=== PATIENT | male | born 1985 | race Caucasian/White ===

== ENCOUNTER 2019-12-28 01:45 | Emergency (ER) | payer SELFPAY ==
[2019-12-28 02:58] LABS: Urine Blood NEGATIVE (NEG); Urine Glucose NEGATIVE (NEG); Urine Protein NEGATIVE (NEG); Urine Specific Gravity >1.030 (1.005-1.030); Urine pH 5.5 (5.0-7.0)
[2019-12-28] MEDS ORDERED: NA CHLORIDE 0.9% 1,000 ML ONE (03:12)
[2019-12-28] MEDS ORDERED: MORPHINE 4 MG/ML SYR ONE (03:12)
[2019-12-28] MEDS ORDERED: ONDANSETRON 4 MG/2 ML VIAL ONE (03:13)
[2019-12-28 04:14] LABS: Absolute Lymphocytes (CBC) 1.9 K/uL (0.7-4.9); Basophils % 0.2 % (0-1.3); Hematocrit 41.4 % (39.6-49.0); MPV 8.4 fL (7.6-11.3); RBC Red Blood Cell Count 4.84 M/uL (4.33-5.43)
[2019-12-28 04:20] LABS: ALT/SGPT 48 U/L (12-78); AST/SGOT 27 U/L (15-37); Albumin 3.7 g/dL (3.4-5.0); Alkaline Phosphatase 84 U/L (45-117); BUN Blood Urea Nitrogen 13 mg/dL (7-18); Bicarbonate 27 mmol/L (21-32); Bilirubin Direct 0.1 mg/dL (0-0.2); Bilirubin Total 0.4 mg/dL (0.2-1.0); Glucose Level 97 mg/dL (74-106); Lipase 138 U/L (73-393); Potassium 3.8 mmol/L (3.5-5.1); Protein, Total 7.9 g/dL (6.4-8.2); Sodium Level 136 mmol/L (136-145)
--- NOTE | 2019-12-28 05:45 | EDPHYS ---
Physician Documentation [facility] Name: Roman Rico Age: 34 yrs Sex: Male : 1985 Arrival Date: 12/28/2019 Time: 01:48 Bed 13 Private MD: VICKY Physician Matt Parmar HPI: 12/27 02:58 This 34 yrs old Male presents to ER via Ambulatory with complaints of vania Possible Kidney Stone. 02:58 The patient presents with abdominal pain in the upper abdomen, in the right upper vania quadrant, abdominal distention in the upper abdomen, in the right upper quadrant. Onset: The symptoms/episode began/occurred 1 day(s) ago. The symptoms do not radiate. Associated signs and symptoms: Pertinent positives: fever, nausea, shortness of breath. The symptoms are described as constant, crampy. Modifying factors: The symptoms are alleviated by remaining still, the symptoms are aggravated by movement, touching the area, walking. Severity of pain: At its worst the pain was moderate in the emergency department the pain is unchanged. The patient has not experienced similar symptoms in the past. Historical: - Allergies: 02:17 No Known Allergies; lp1 - Home Meds: 02:17 None [Active]; lp1 - PMHx: 02:17 None; lp1 - PSHx: 02:17 None; lp1 - Immunization history:: Adult Immunizations up to date. - Social history:: Smoking status: Patient denies any tobacco usage or history of. - Family history:: not pertinent. ROS: 02:58 Constitutional: Negative for fever, chills, and weight loss, Eyes: Negative for injury, vania pain, redness, and discharge, ENT: Negative for injury, pain, and discharge, Neck: Negative for injury, pain, and swelling, Cardiovascular: Negative for chest pain, palpitations, and edema, Respiratory: Negative for shortness of breath, cough, wheezing, and pleuritic chest pain, Back: Negative for injury and pain, : Negative for injury, bleeding, discharge, and swelling, MS/Extremity: Negative for injury and deformity, Skin: Negative for injury, rash, and discoloration, Neuro: Negative for headache, weakness, numbness, tingling, and seizure, Psych: Negative for depression, anxiety, suicide ideation, homicidal ideation, and hallucinations, Allergy/Immunology: Negative for hives, rash, and allergies, Endocrine: Negative for neck swelling, polydipsia, polyuria, polyphagia, and marked weight changes, Hematologic/Lymphatic: Negative for swollen nodes, abnormal bleeding, and unusual bruising. 02:58 Abdomen/GI: Positive for abdominal pain, abdominal distension, of the anterior aspect of right lateral abdomen, posterior aspect of right lateral abdomen and right upper quadrant. Exam: 02:58 Constitutional: This is a well developed, well nourished patient who is awake, alert, vania and in no acute distress. Head/Face: Normocephalic, atraumatic. Eyes: Pupils equal round and reactive to light, extra-ocular motions intact. Lids and lashes normal. Conjunctiva and sclera are non-icteric and not injected. Cornea within normal limits. Periorbital areas with no swelling, redness, or edema. ENT: Nares patent. No nasal discharge, no septal abnormalities noted. Tympanic membranes are normal and external auditory canals are clear. Oropharynx with no redness, swelling, or masses, exudates, or evidence of obstruction, uvula midline. Mucous membranes moist. Neck: Trachea midline, no thyromegaly or masses palpated, and no cervical lymphadenopathy. Supple, full range of motion without nuchal rigidity, or vertebral point tenderness. No Meningismus. Chest/axilla: Normal chest wall appearance and motion. Nontender with no deformity. No lesions are appreciated. Cardiovascular: Regular rate and rhythm with a normal S1 and S2. No gallops, murmurs, or rubs. Normal PMI, no JVD. No pulse deficits. Respiratory: Lungs have equal breath sounds bilaterally, clear to auscultation and percussion. No rales, rhonchi or wheezes noted. No increased work of breathing, no retractions or nasal flaring. Back: No spinal tenderness. No costovertebral tenderness. Full range of motion. Male : Normal genitalia with no discharge or lesions. Skin: Warm, dry with normal turgor. Normal color with no rashes, no lesions, and no evidence of cellulitis. MS/ Extremity: Pulses equal, no cyanosis. Neurovascular intact. Full, normal range of motion. Neuro: Awake and alert, GCS 15, oriented to person, place, time, and situation. Cranial nerves II-XII grossly intact. Motor strength 5/5 in all extremities. Sensory grossly intact. Cerebellar exam normal. Normal gait. Psych: Awake, alert, with orientation to person, place and time. Behavior, mood, and affect are within normal limits. 02:58 Abdomen/GI: Inspection: distension, Bowel sounds: normal, Palpation: mild abdominal tenderness, moderate abdominal tenderness, in the anterior aspect of right lateral abdomen, posterior aspect of right lateral abdomen and right upper quadrant, Liver: no appreciated palpable abnormalities, Hernia: not appreciated. 05:46 Musculoskeletal/extremity: DVT Exam: No signs of deep vein thrombosis. no pain, no vania swelling, no tenderness, negative Homans' sign noted on exam, no appreciated bluish discoloration, no erythema, no increased warmth. Vital Signs: 02:15 BP 132 / 79; Pulse 90; Resp 18; Temp 99.6(O); Pulse Ox 100% on R/A; Weight 81.65 kg lp1 (R); Height 6 ft. 0 in. (182.88 cm); Pain 3/10; 03:33 BP 114 / 71; Pulse 84; Resp 19; Temp 99.6; Pulse Ox 96% ; Pain 6/10; fu 04:15 BP 104 / 73; Pulse 77; Resp 19; Pain 0/10; fu 07:15 BP 120 / 76; Pulse 89; Resp 18; Temp 98.9; Pulse Ox 99% on R/A; ph 02:15 Body Mass Index 24.41 (81.65 kg, 182.88 cm) lp1 MDM: 02:24 Patient medically screened. vania 03:01 Data reviewed: vital signs, nurses notes, lab test result(s), radiologic studies, CT vania scan, plain films. 03:01 Differential diagnosis: appendicitis, bowel obstruction, cholecystitis, Cholelithiasis, vania gastritis, non-specific abd pain, pancreatitis, Peptic Ulcer Disease, Ureterolithiasis, urinary tract infection. Data interpreted: threat monitoring analyst: not applicable for this patient encounter. rate is 90 beats/min, rhythm is normal sinus rhythm, Pulse oximetry: on room air is 100 %. Test interpretation: by ED physician or midlevel provider: plain radiologic studies. Counseling: I had a detailed discussion with the patient and/or guardian regarding: the historical points, exam findings, and any diagnostic results supporting the discharge/admit diagnosis, lab results, radiology results. Medication response: Zofran markedly relieved the patient's nausea. 05:42 ED course: ct right lower lobe patchy process, milld left hydro, possible passed stone, [facility] mild enteritis. 12/27 02:45 Order name: Urine Dipstick--Ancillary (enter results); Complete Time: 03:48 mt 12/27 02:58 Order name: Basic Metabolic Panel; Complete Time: 04:25 [facility] 12/27 02:58 Order name: CBC with Diff; Complete Time: 05:40 [facility] 12/27 02:58 Order name: Hepatic Function; Complete Time: 04:25 [facility] 12/27 02:58 Order name: Lipase; Complete Time: 04:25 [facility] 12/27 05:06 Order name: CREATININE WHOLE BLOOD; Complete Time: 05:40 EDMS 12/27 02:18 Order name: Urine Dipstick-Ancillary (obtain specimen); Complete Time: 02:49 lp1 12/27 02:58 Order name: CT Abd/Pelvis - IV Contrast Only [facility] 12/27 02:58 Order name: Chest Pa And Lat (2 Views) XRAY [facility] 12/27 02:58 Order name: IV Saline Lock; Complete Time: 03:36 [facility] 12/27 02:58 Order name: Labs collected and sent; Complete Time: 03:36 [facility] Administered Medications: 03:36 Drug: NS 0.9% 1000 ml Route: IV; Rate: 1 bolus; Site: right antecubital; fu 04:55 Follow up: Response: No adverse reaction fu 03:36 Drug: morphine 4 mg Route: IVP; Site: right antecubital; fu 04:36 Follow up: Response: Pain is decreased fu 03:36 Drug: Zofran (Ondansetron) 4 mg Route: IVP; Site: right antecubital; fu 04:36 Follow up: Response: Nausea is decreased fu 06:01 Drug: levofloxacin 750 mg Volume: 150 ml; Route: IVPB; Infused Over: 90 mins; Site: fu right antecubital; 07:45 Follow up: Response: No adverse reaction; IV Status: Completed infusion ph 06:01 Drug: TORadol 30 mg Route: IVP; Site: right antecubital; fu 07:45 Follow up: Response: No adverse reaction ph Disposition: 12/28/19 05:44 Discharged to Home. Impression: Pneumonia due to other specified bacteria, Pleurisy, Abdominal tenderness. - Condition is Stable. - Discharge Instructions: Abdominal Pain, Adult, Fever, Adult, Nausea and Vomiting, Adult, Pleurisy, Community-Acquired Pneumonia, Adult, Abdominal Pain, Adult, [id number], Community-Acquired Pneumonia, Adult, Xoid-ma-Poto, Pleurisy, [id number], Fever, Adult, [id number]. - Prescriptions for Ibuprofen 600 mg Oral Tablet - take 1 tablet by ORAL route every 6 hours As needed take with food; 20 tablet. Levaquin 750 mg Oral Tablet - take 1 tablet by ORAL route once daily for 8-10 days; 9 tablet. - Medication Reconciliation Form, Thank You Letter, Antibiotic Education, Prescription Opioid Use form. - Follow up: Private Physician; When: 2 - 3 days; Reason: Recheck today's complaints, Continuance of care, Re-evaluation by your physician. Follow up: Bradford Scott MD; When: 2 - 3 days; Reason: Recheck today's complaints, Re-evaluation by your physician. - Problem is new. - Symptoms have improved. Signatures: Dispatcher [employer] EDMO Matt Parmar MD MD cha Pena, Laura RN RN lp1 Malu Bonds RN RN Rinku Fishman RN RN Corrections: (The following items were deleted from the chart) 05:45 05:44 12/28/2019 05:44 Discharged to Home. Impression: Pneumonia due to other specified vania bacteria; Pleurisy; Abdominal tenderness. Condition is Stable. Forms are Medication Reconciliation Form, Thank You Letter, Antibiotic Education, Prescription Opioid Use. Follow up: Private Physician; When: 2 - 3 days; Reason: Recheck today's complaints, Continuance of care, Re-evaluation by your physician. Problem is new. Symptoms have improved. [facility] 07:45 05:45 12/28/2019 05:44 Discharged to Home. Impression: Pneumonia due to other specified ph bacteria; Pleurisy; Abdominal tenderness. Condition is Stable. Forms are Medication Reconciliation Form, Thank You Letter, Antibiotic Education, Prescription Opioid Use. Follow up: Private Physician; When: 2 - 3 days; Reason: Recheck today's complaints, Continuance of care, Re-evaluation by your physician. Follow up: Bradford Scott; When: 2 - 3 days; Reason: Recheck today's complaints, Re-evaluation by your physician. Problem is new. Symptoms have improved. vania
--- NOTE | 2019-12-28 05:45 | ER ---
Nurse's Notes [facility] Name: Roman Rico Age: 34 yrs Sex: Male : 1985 Arrival Date: 12/28/2019 Time: 01:48 Bed 13 Private MD: Diagnosis: Pneumonia due to other specified bacteria;Pleurisy;Abdominal tenderness Presentation: 12/27 02:15 Chief complaint: Patient states: pain to right flank radiating to RLQ of abdomen x 2 lp1 days; stays pain when lying flat or standing; Denies pain with urination. Coronavirus screen: Patient denies a cough. Patient denies shortness of breath or difficulty breathing. Patient denies measured and/or subjective temperature greater than 100.4F prior to today's visit. Patient denies travel on a cruise ship or to a country the [facility] currently lists as an affected area. Patient denies contact with known and/or suspected case of COVID-19. Ebola Screen: No symptoms or risks identified at this time. Initial Sepsis Screen: Does the patient meet any 2 criteria? No. Patient's initial sepsis screen is negative. Does the patient have a suspected source of infection? No. Patient's initial sepsis screen is negative. Risk Assessment: Do you want to hurt yourself or someone else? Patient reports no desire to harm self or others. Onset of symptoms was December 26, 2019. 02:15 Method Of Arrival: Ambulatory lp1 02:15 Acuity: FREDDY 3 lp1 Historical: - Allergies: 02:17 No Known Allergies; lp1 - Home Meds: 02:17 None [Active]; lp1 - PMHx: 02:17 None; lp1 - PSHx: 02:17 None; lp1 - Immunization history:: Adult Immunizations up to date. - Social history:: Smoking status: Patient denies any tobacco usage or history of. - Family history:: not pertinent. Screenin:17 Abuse screen: Denies threats or abuse. Denies injuries from another. Nutritional lp1 screening: No deficits noted. Tuberculosis screening: No symptoms or risk factors identified. Fall Risk None identified. Assessment: 02:20 General: Appears in no apparent distress. Behavior is appropriate for age. Pain: lp1 Complains of pain in right low back Pain radiates to right lower quadrant Pain currently is 3 out of 10 on a pain scale. Neuro: Level of Consciousness is awake, alert, obeys commands, Oriented to person, place, time, situation. Cardiovascular: Patient's skin is warm and dry. Respiratory: Respiratory effort is even, unlabored. GI: Abdomen is non-distended, Bowel sounds present X 4 quads. Abdomen is tender to palpation in right lower quadrant. : Denies burning with urination. EENT: No signs and/or symptoms were reported regarding the EENT system. Derm: Skin is pink, warm \T\ dry. Musculoskeletal: No deficits noted. 04:25 Reassessment: Patient to CT at this time. lp1 07:00 Reassessment: Patient appears in no apparent distress at this time. Patient and/or ph family updated on plan of care and expected duration. Pain level reassessed. Patient is alert, oriented x 3, equal unlabored respirations, skin warm/dry/pink. D/C pending completion of IV antibiotics. 07:40 Reassessment: Patient appears in no apparent distress at this time. Patient and/or ph family updated on plan of care and expected duration. Pain level reassessed. Patient is alert, oriented x 3, equal unlabored respirations, skin warm/dry/pink. IV antibiotics complete, pt d/c home w/ mother. Vital Signs: 02:15 BP 132 / 79; Pulse 90; Resp 18; Temp 99.6(O); Pulse Ox 100% on R/A; Weight 81.65 kg lp1 (R); Height 6 ft. 0 in. (182.88 cm); Pain 3/10; 03:33 BP 114 / 71; Pulse 84; Resp 19; Temp 99.6; Pulse Ox 96% ; Pain 6/10; fu 04:15 BP 104 / 73; Pulse 77; Resp 19; Pain 0/10; fu 07:15 BP 120 / 76; Pulse 89; Resp 18; Temp 98.9; Pulse Ox 99% on R/A; ph 02:15 Body Mass Index 24.41 (81.65 kg, 182.88 cm) lp1 ED Course: 01:48 Patient arrived in ED. cl3 02:17 Triage completed. lp1 02:17 Arm band placed on right wrist. lp1 02:17 Patient has correct armband on for positive identification. lp1 02:20 Ricarda Zavala, RN is Primary Nurse. lp1 02:24 Matt Parmar MD is Attending Physician. vania 03:28 Chest Pa And Lat (2 Views) XRAY In Process Unspecified. EDMS 03:30 Initial lab(s) drawn, by me, sent to lab. Inserted saline lock: 22 gauge in right fu antecubital area, using aseptic technique. 04:27 No provider procedures requiring assistance completed. fu 04:44 CT Abd/Pelvis - IV Contrast Only In Process Unspecified. EDMS 05:44 Bradford Scott MD is Referral Physician. vania 07:45 IV discontinued, intact, bleeding controlled, No redness/swelling at site. Pressure ph dressing applied. Administered Medications: 03:36 Drug: NS 0.9% 1000 ml Route: IV; Rate: 1 bolus; Site: right antecubital; fu 04:55 Follow up: Response: No adverse reaction fu 03:36 Drug: morphine 4 mg Route: IVP; Site: right antecubital; fu 04:36 Follow up: Response: Pain is decreased fu 03:36 Drug: Zofran (Ondansetron) 4 mg Route: IVP; Site: right antecubital; fu 04:36 Follow up: Response: Nausea is decreased fu 06:01 Drug: levofloxacin 750 mg Volume: 150 ml; Route: IVPB; Infused Over: 90 mins; Site: fu right antecubital; 07:45 Follow up: Response: No adverse reaction; IV Status: Completed infusion ph 06:01 Drug: TORadol 30 mg Route: IVP; Site: right antecubital; fu 07:45 Follow up: Response: No adverse reaction ph Outcome: 05:44 Discharge ordered by . vania 07:45 Discharged to home ambulatory, with family. ph 07:45 Condition: good 07:45 Discharge instructions given to patient, Instructed on discharge instructions, follow up and referral plans. medication usage, Demonstrated understanding of instructions, follow-up care, medications, Prescriptions given X 2. 07:45 Patient left the ED. ph Signatures: Dispatcher [employer] EDKS Matt Parmar MD MD cha Pena, Laura, RN RN lp1 Malu Bonds RN RN Rinku Fishman RN RN Nelson Zarate cl3
[2019-12-28] MEDS ORDERED: KETOROLAC 30 MG/ML INJ ONE (06:04)
[2019-12-28] MEDS ORDERED: Levofloxacin 750mg IV 750 MG/150 ML BAG IV ONE (06:05)
[2019-12-28 07:50] VITALS: TEMP 99.6; O2SAT 100
[2019-12-28 07:59] VITALS: BP 104/73
--- NOTE | 2019-12-28 08:56 | RAD REPORT ---
EXAM DESCRIPTION: RAD - Chest Pa And Lat (2 Views) - 12/28/2019 3:28 am CLINICAL HISTORY: ABDOMINAL DISTENTION Chest pain. COMPARISON: <Comparisons> FINDINGS: The lungs are clear. The heart is normal in size. No displaced fractures. IMPRESSION: No acute or concerning finding suspected.
--- NOTE | 2019-12-29 02:35 | RAD REPORT ---
EXAM DESCRIPTION: CT ABDOMEN AND PELVIS WITH CONTRAST CLINICAL HISTORY: ABD PAIN COMPARISON: None Available. TECHNIQUE: CT of the abdomen and pelvis performed following IV administration of iodinated contrast. FINDINGS: Lung Bases: Patchy right basilar airspace opacities. Bones: No destructive bone lesions identified. Abdomen: Liver: The liver has normal size and density. No intrahepatic biliary dilatation. Gallbladder: No calcified gallstones. Spleen, Pancreas, and Adrenal Glands: The spleen, pancreas, and adrenal glands are unremarkable. Kidneys: No obstructing ureteral calculus. The left hydroureter and hydronephrosis. Punctate nonobst ructing left nephrolithiasis. Vasculature: The aorta and IVC have normal caliber and position. The portal vein is patent. The pro ximal visceral and renal arteries are patent. Stomach: The stomach and duodenum have normal course. Other: No free intraperitoneal air. No free fluid or lymphadenopathy. Pelvis: Bladder: Urinary bladder is unremarkable. Bowel: No dilated loops of large or small bowel. Mild wall thickening of loops of small bowel in th e left upper abdomen. Appendix: Normal appendix. Pelvis: Prostate is not enlarged. IMPRESSION: 1. Mild left hydroureter and hydronephrosis may indicate a recently passed left ureteral calculus. 2. Findings suggestive of mild nonspecific enteritis. 3. Punctate nonobstructing left nephrolithiasis. 4. Patchy right basilar airspace opacities may represent developing pneumonic process. Viral pneumoni c process could produce this appearance. This exam was performed according to our departmental dose-optimization program, which includes autom ated exposure control, adjustment of the mA and/or kV according to patient size and/or use of iterati ve reconstruction technique. Electronically signed by: Taras Schaffer 12/28/2019 5:02 AM CDT Due to temporary technical issues with the PACS/Fluency reporting system, reports are being signed by the in house radiologist without review as a courtesy to ensure prompt reporting. The interpreting r adiologist is fully responsible for the content of the report.
== END 2019-12-28 07:45 | disposition home or self-care (01) ==
LOC: ER 01:45
DX: J15.8 Pneumonia due to other specified bacteria (principal); R09.1 Pleurisy
CPT/HCPCS: 36415; 71046; 74177; 80048; 80076; 81003; 82565; 83690; 85025; 96365; 96366; 96375; 99284; J2405; J7030; Q9967

== ENCOUNTER 2021-06-21 22:57 | Emergency (ER) | payer OTHER ==
[2021-06-21] MEDS ORDERED: MORPHINE 4 MG/ML SYR ONE (23:46)
[2021-06-21] MEDS ORDERED: ONDANSETRON 4 MG/2 ML VIAL ONE (23:46)
[2021-06-21] MEDS ORDERED: NA CHLORIDE 0.9% 1,000 ML ONE (23:46)
[2021-06-22 00:06] LABS: Absolute Lymphocytes (CBC) 2.5 K/uL (0.7-4.9); Basophils % 0.3 % (0-1.3); Hematocrit 47.5 % (39.6-49.0); MPV 8.5 fL (7.6-11.3); RBC Red Blood Cell Count 5.53 M/uL (4.33-5.43)
[2021-06-22 00:21] LABS: Albumin 4.2 g/dL (3.4-5.0); Bilirubin Direct 0.1 mg/dL (0-0.2); Bilirubin Total 0.3 mg/dL (0.2-1.0); Potassium 3.8 mmol/L (3.5-5.1); Protein, Total 8.1 g/dL (6.4-8.2)
[2021-06-22 01:35] LABS: Urine Blood 3+ (Negative); Urine Glucose Negative (Negative); Urine Protein 2+ (Negative); Urine Specific Gravity 1.025 (1.005-1.030); Urine pH 6.5 (5.0-7.0)
[2021-06-22] MEDS ORDERED: NA CHLORIDE 0.9% 1,000 ML ONE (01:49)
[2021-06-22] MEDS ORDERED: KETOROLAC 30 MG/ML INJ ONE (01:49)
[2021-06-22] MEDS ORDERED: PROMETHAZINE INJ 25 MG/ML AMP ONE (01:56)
--- NOTE | 2021-06-22 03:13 | EDPHYS ---
Physician Documentation [facility] Name: Roman Rico Age: 36 yrs Sex: Male : 1985 Arrival Date: 06/21/2021 Time: 23:03 Bed 15 Private MD: ED Physician Gallito Vora HPI: 06/21 23:42 This 36 yrs old Male presents to ER via Wheelchair with complaints of Abdominal Pain - mh7 RLQ. 23:42 The patient complains of pain in the right flank. The pain radiates to the Right lower mh7 abdomen. Onset: The symptoms/episode began/occurred today. Modifying factors: The symptoms are alleviated by nothing. the symptoms are aggravated by nothing. Associated signs and symptoms: Pertinent positives: nausea, vomiting, Pertinent negatives: diarrhea, dizziness, dysuria, fever, urinary frequency, headache, hematuria, pain radiating to the lower extremities. Severity of pain: At its worst the pain was moderate today, in the emergency department the pain is unchanged. Historical: - Allergies: 23:31 Wasps; bb - Home Meds: 23:31 None [Active]; bb - PMHx: 23:31 None; bb - PSHx: 23:31 None; bb - Immunization history:: Adult Immunizations up to date, Client reports having NOT received the Covid vaccine. - Social history:: Smoking status: Patient denies any tobacco usage or history of. Patient uses alcohol, but reports only rare drinking. Patient/guardian denies using street drugs. ROS: 23:42 Constitutional: Negative for fever, chills, and weight loss, Eyes: Negative for injury, mh7 pain, redness, and discharge, ENT: Negative for injury, pain, and discharge, Neck: Negative for injury, pain, and swelling, Cardiovascular: Negative for chest pain, palpitations, and edema, Respiratory: Negative for shortness of breath, cough, wheezing, and pleuritic chest pain, : Negative for injury, bleeding, discharge, and swelling, MS/Extremity: Negative for injury and deformity, Skin: Negative for injury, rash, and discoloration, Neuro: Negative for headache, weakness, numbness, tingling, and seizure, Psych: Negative for depression, anxiety, suicide ideation, homicidal ideation, and hallucinations, Allergy/Immunology: Negative for hives, rash, and allergies, Endocrine: Negative for neck swelling, polydipsia, polyuria, polyphagia, and marked weight changes, Hematologic/Lymphatic: Negative for swollen nodes, abnormal bleeding, and unusual bruising. Exam: 23:42 Head/Face: Normocephalic, atraumatic. Eyes: Pupils equal round and reactive to light, mh7 extra-ocular motions intact. Lids and lashes normal. Conjunctiva and sclera are non-icteric and not injected. Cornea within normal limits. Periorbital areas with no swelling, redness, or edema. Neck: Trachea midline, no thyromegaly or masses palpated, and no cervical lymphadenopathy. Supple, full range of motion without nuchal rigidity, or vertebral point tenderness. No Meningismus. Chest/axilla: Normal chest wall appearance and motion. Nontender with no deformity. No lesions are appreciated. Cardiovascular: Regular rate and rhythm with a normal S1 and S2. No gallops, murmurs, or rubs. Normal PMI, no JVD. No pulse deficits. Respiratory: Lungs have equal breath sounds bilaterally, clear to auscultation and percussion. No rales, rhonchi or wheezes noted. No increased work of breathing, no retractions or nasal flaring. Skin: Warm, dry with normal turgor. Normal color with no rashes, no lesions, and no evidence of cellulitis. MS/ Extremity: Pulses equal, no cyanosis. Neurovascular intact. Full, normal range of motion. Neuro: Awake and alert, GCS 15, oriented to person, place, time, and situation. Cranial nerves II-XII grossly intact. Motor strength 5/5 in all extremities. Sensory grossly intact. Cerebellar exam normal. Normal gait. Psych: Awake, alert, with orientation to person, place and time. Behavior, mood, and affect are within normal limits. 23:42 Constitutional: The patient appears in no acute distress, alert, awake, uncomfortable. 23:42 Abdomen/GI: Inspection: abdomen appears normal, Bowel sounds: normal, in all quadrants, mh7 Palpation: moderate abdominal tenderness, in the right lower quadrant, mass, is not appreciated, rebound tenderness, is not appreciated, voluntary guarding, is not appreciated, involuntary guarding, is not appreciated, no appreciated organomegaly, Rectal exam: the exam is deferred, because of patient request, Indicators: McBurney's point is not tender, Bray's sign is negative, Rovsing's sign is negative, Obturator sign is negative, Psoas sign is negative, Liver: no appreciated palpable abnormalities, Hernia: not appreciated. 23:42 Back: ROM is normal, normal spinal alignment noted, CVA tenderness, that is mild, is mh7 noted on the right, muscle spasm, is not present. Vital Signs: 23:26 BP 124 / 78; Pulse 98; Resp 18 S; Temp 97.5(TE); Pulse Ox 99% on R/A; Weight 86.18 kg bb (R); Height 6 ft. 0 in. (182.88 cm) (R); Pain 04/13; 06/22 00:15 BP 135 / 87; Pulse 63; Resp 18; Pulse Ox 97% on R/A; mk 01:14 BP 121 / 74; Pulse 79; Resp 18; Pulse Ox 100% on R/A; mk 02:15 Pulse 82; Resp 18; Pulse Ox 96% on R/A; mk 04:45 BP 137 / 74; Pulse 87; Resp 18; Pulse Ox 97% on R/A; bb 06/21 23:26 Body Mass Index 25.77 (86.18 kg, 182.88 cm) bb Mukul Coma Score: 00:15 Eye Response: spontaneous(4). Verbal Response: oriented(5). Motor Response: obeys mk commands(6). Total: 15. 00:15 Eye Response: spontaneous(4). Verbal Response: oriented(5). Motor Response: obeys mk commands(6). Total: 15. 02:15 Eye Response: spontaneous(4). Verbal Response: oriented(5). Motor Response: obeys mk commands(6). Total: 15. 04:45 Eye Response: spontaneous(4). Verbal Response: oriented(5). Motor Response: obeys bb commands(6). Total: 15. MDM: 03:11 Differential diagnosis: nephrolithiasis, pyelonephritis, UTI, diverticulitis. Data mh7 reviewed: vital signs, nurses notes, old medical records, lab test result(s), CBC, electrolytes, urinalysis, radiologic studies, CT scan. Data interpreted: Pulse oximetry: on room air is 96 %. Interpretation: normal. Counseling: I had a detailed discussion with the patient and/or guardian regarding: the historical points, exam findings, and any diagnostic results supporting the discharge/admit diagnosis, lab results, radiology results, the need for outpatient follow up, a urologist, to return to the emergency department if symptoms worsen or persist or if there are any questions or concerns that arise at home. Response to treatment: the patient's symptoms have resolved after treatment, the patient's blood pressure is in an acceptable range, mental status has returned to baseline, the patient no longer shows bradycardia, the patient is not short of breath, the patient is not tachycardic, the patient's pain is gone, the patient's temperature has normalized, the patient is now symptom free, patient is well hydrated. 03:12 Patient medically screened. [facility] 06/21 23:39 Order name: Basic Metabolic Panel; Complete Time: 00:29 [facility] 06/21 23:39 Order name: CBC with Diff; Complete Time: 00:12 [facility] 06/21 23:39 Order name: Hepatic Function; Complete Time: 00:29 [facility] 06/21 23:39 Order name: Lipase; Complete Time: 00:29 [facility] 06/21 23:41 Order name: CT Stone Protocol [facility] 06/22 01:35 Order name: Urine Dipstick-Ancillary; Complete Time: 01:36 [facility] 06/21 23:39 Order name: IV Saline Lock [facility] 06/21 23:39 Order name: Labs collected and sent; Complete Time: 23:59 [facility] 06/21 23:39 Order name: Urine Dipstick-Ancillary (obtain specimen); Complete Time: 02:19 [facility] Administered Medications: 00:13 Drug: morphine 4 mg Route: IVP; Site: right antecubital; 02:18 Follow up: Response: No adverse reaction; Pain is unchanged, physician notified 00:13 Drug: Zofran (Ondansetron) 4 mg Route: IVP; Site: right antecubital; 02:18 Follow up: Response: Nausea unchanged mk 00:13 Drug: NS 0.9% 1000 ml Route: IV; Rate: 1000 ml; Site: right antecubital; mk 02:18 Follow up: Response: No adverse reaction; IV Status: Completed infusion; IV Intake: mk 1000ml 02:17 Drug: NS 0.9% 1000 ml Route: IV; Rate: 1000 ml; Site: right antecubital; mk 04:48 Follow up: Response: No adverse reaction; IV Status: Completed infusion; IV Intake: bb 1000ml 02:17 Drug: Ketorolac 30 mg Route: IVP; Site: right antecubital; mk 03:45 Follow up: Response: Pain is decreased mk 04:48 Follow up: Response: Pain is decreased bb 02:18 Drug: Phenergan (promethazine) 12.5 mg Route: IVP; Site: right antecubital; mk 04:48 Follow up: Response: Nausea is decreased bb 03:45 Drug: LevaQUIN (levofloxacin) 500 mg Route: PO; mk 04:48 Follow up: Response: Vomiting increased bb 04:31 Drug: Rocephin (cefTRIAXone) 1 grams Route: IV; Rate: bolus; Site: right antecubital; bb 04:47 Follow up: Response: No adverse reaction; IV Status: Completed infusion; IV Intake: 10mlbb Disposition Summary: 06/22/21 03:12 Discharge Ordered Location: Home [facility] Problem: new [facility] Symptoms: have improved [facility] Condition: Stable [facility] Diagnosis - Ureterolithiasis, right [facility] Followup: [facility] - With: Private Physician - When: 1 - 2 days - Reason: Worsening of condition, Recheck today's complaints, Continuance of care, Re-evaluation by your physician Followup: [facility] - With: Reagan Angulo MD - When: 1 - 2 days - Reason: Worsening of condition, Recheck today's complaints Discharge Instructions: - Discharge Summary Sheet [facility] - Kidney Stones, [id number] [facility] Forms: - Medication Reconciliation Form [facility] - Thank You Letter [facility] - Antibiotic Education [facility] - Prescription Opioid Use [facility] Prescriptions: - Flomax 0.4 mg Oral capsule - take 1 capsule by ORAL route once daily 1/2 hour following the same meal each [facility] day; 7 capsule; Refills: 0, Product Selection Permitted - ketorolac 10 mg Oral tablet - take 1 tablet by ORAL route every 8 hours not to exceed 40 mg in 24hrs; 12 [facility] tablet; Refills: 0, Product Selection Permitted - ondansetron 4 mg Oral tablet,disintegrating - place 1 tablet by TRANSLINGUAL route every 8 hours As needed; 10 tablet; [facility] Refills: 0, Product Selection Permitted - Cipro 500 mg Oral Tablet - take 1 tablet by ORAL route every 12 hours for 7 days; 14 tablet; Refills: 0, mh7 Product Selection Permitted Signatures: Dispatcher [employer] Marcy Fortune, RN RN Gallito Ahmadi MD MD [facility] Rowena Medina RN RN
--- NOTE | 2021-06-22 03:13 | ER ---
Nurse's Notes [facility] Name: Roman Rico Age: 36 yrs Sex: Male : 1985 Arrival Date: 06/21/2021 Time: 23:03 Bed 15 Private MD: Diagnosis: Ureterolithiasis, right Presentation: 06/21 23:26 Chief complaint: Patient states: he is having right flank pain which started at work bb earlier today now is vomiting denies dysuria or diarrhea, denies fever. Coronavirus screen: muscle pain, vomiting. Client presents with at least one sign or symptom that may indicate coronavirus-19. Standard/surgical mask placed on the client. Ebola Screen: No symptoms or risks identified at this time. Initial Sepsis Screen: Does the patient meet any 2 criteria? No. Patient's initial sepsis screen is negative. Does the patient have a suspected source of infection? No. Patient's initial sepsis screen is negative. Risk Assessment: Do you want to hurt yourself or someone else? Patient reports no desire to harm self or others. Onset of symptoms was June 21, 2021. 23:26 Method Of Arrival: Wheelchair bb 23:26 Acuity: FREDDY 3 bb Historical: - Allergies: 23:31 Wasps; bb - Home Meds: 23:31 None [Active]; bb - PMHx: 23:31 None; bb - PSHx: 23:31 None; bb - Immunization history:: Adult Immunizations up to date, Client reports having NOT received the Covid vaccine. - Social history:: Smoking status: Patient denies any tobacco usage or history of. Patient uses alcohol, but reports only rare drinking. Patient/guardian denies using street drugs. Screenin/19 00:01 Abuse screen: Denies threats or abuse. Nutritional screening: No deficits noted. as6 Tuberculosis screening: No symptoms or risk factors identified. Fall Risk None identified. Assessment: 00:00 General: Appears uncomfortable, ill, Behavior is restless. Pain: Complains of pain in as6 right flank Pain radiates to abdomen. Neuro: Level of Consciousness is awake, alert, obeys commands, Oriented to person, place, time, situation. Cardiovascular: Capillary refill < 3 seconds Patient's skin is warm and dry. Respiratory: Airway is patent Trachea midline Respiratory effort is even, unlabored, Respiratory pattern is regular, symmetrical. GI: Reports lower abdominal pain, nausea, vomiting. Derm: Skin is intact, is healthy with good turgor, Skin is pale. 01:00 General: Appears distressed, uncomfortable, Behavior is restless. Pain: Complains of mk pain in abdomen Pain radiates to back Pain currently is 10 out of 10 on a pain scale. at worst was 10 out of 10 on a pain scale. Quality of pain is described as sharp, Pain began 4 hours ago. Is lasting more than 1 hour. Alleviated by medications. Cardiovascular: Heart tones S1 S2 present Capillary refill < 3 seconds fingers toes Patient's skin is warm and dry. Pulses are 2+ in right radial artery, right dorsalis pedis artery, left radial artery and left dorsalis pedis artery Rhythm is regular. Respiratory: Airway is patent Trachea midline Respiratory effort is even, unlabored, Respiratory pattern is regular, symmetrical, Breath sounds are clear. GI: Reports lower abdominal pain, nausea, vomiting, since around . : No signs and/or symptoms were reported regarding the genitourinary system. Derm: Skin is intact, is healthy with good turgor, Skin is pink, warm \T\ dry. Musculoskeletal: Range of motion: intact in all extremities. 02:15 Reassessment: No changes from previously documented assessment. Patient and/or family mk updated on plan of care and expected duration. Pain level reassessed. Patient is alert, oriented x 3, equal unlabored respirations, skin warm/dry/pink. 03:10 Reassessment: Patient and/or family updated on plan of care and expected duration. Pain mk level reassessed. Patient is alert, oriented x 3, equal unlabored respirations, skin warm/dry/pink. Pain: Complains of pain in abdomen Pain radiates to back Pain currently is 10 out of 10 on a pain scale. Quality of pain is described as sharp, Pain began since . 04:12 Reassessment: Patient and/or family updated on plan of care and expected duration. Pain mk level reassessed. Patient is alert, oriented x 3, equal unlabored respirations, skin warm/dry/pink. Patient states symptoms have improved. Vital Signs: 06/21 23:26 BP 124 / 78; Pulse 98; Resp 18 S; Temp 97.5(TE); Pulse Ox 99% on R/A; Weight 86.18 kg bb (R); Height 6 ft. 0 in. (182.88 cm) (R); Pain 10; 06/22 00:15 BP 135 / 87; Pulse 63; Resp 18; Pulse Ox 97% on R/A; mk 01:14 BP 121 / 74; Pulse 79; Resp 18; Pulse Ox 100% on R/A; mk 02:15 Pulse 82; Resp 18; Pulse Ox 96% on R/A; mk 04:45 BP 137 / 74; Pulse 87; Resp 18; Pulse Ox 97% on R/A; bb 06/21 23:26 Body Mass Index 25.77 (86.18 kg, 182.88 cm) bb Mukul Coma Score: 00:15 Eye Response: spontaneous(4). Verbal Response: oriented(5). Motor Response: obeys mk commands(6). Total: 15. 00:15 Eye Response: spontaneous(4). Verbal Response: oriented(5). Motor Response: obeys mk commands(6). Total: 15. 02:15 Eye Response: spontaneous(4). Verbal Response: oriented(5). Motor Response: obeys mk commands(6). Total: 15. 04:45 Eye Response: spontaneous(4). Verbal Response: oriented(5). Motor Response: obeys bb commands(6). Total: 15. ED Course: 06/21 23:03 Patient arrived in ED. 23:31 Triage completed. bb 23:31 Arm band placed on Patient placed in an exam room, on a stretcher, on pulse oximetry. bb Family accompanied patient. 23:32 Gallito Vora MD is Attending Physician. 7 23:34 Clyde Mendoza, REY is Primary Nurse. as6 06/22 00:01 Bed in low position. Call light in reach. Side rails up X2. Pulse ox on. NIBP on. Warm as6 blanket given. 00:05 Inserted saline lock: 18 gauge in right antecubital area, using aseptic technique. mk 00:13 Primary Nurse role handed off by Clyde Mendoza, RN cs9 00:13 Basic Metabolic Panel Sent. mk 00:13 Hepatic Function Sent. mk 00:13 Lipase Sent. mk 00:36 CT Stone Protocol In Process Unspecified. EDMS 01:14 Kotarski, Rowena, REY is Primary Nurse. mk 03:12 Reagan Angulo MD is Referral Physician. 7 04:45 No provider procedures requiring assistance completed. IV discontinued, intact, bb bleeding controlled, No redness/swelling at site. Administered Medications: 00:13 Drug: morphine 4 mg Route: IVP; Site: right antecubital; mk 02:18 Follow up: Response: No adverse reaction; Pain is unchanged, physician notified mk 00:13 Drug: Zofran (Ondansetron) 4 mg Route: IVP; Site: right antecubital; mk 02:18 Follow up: Response: Nausea unchanged mk 00:13 Drug: NS 0.9% 1000 ml Route: IV; Rate: 1000 ml; Site: right antecubital; mk 02:18 Follow up: Response: No adverse reaction; IV Status: Completed infusion; IV Intake: mk 1000ml 02:17 Drug: NS 0.9% 1000 ml Route: IV; Rate: 1000 ml; Site: right antecubital; mk 04:48 Follow up: Response: No adverse reaction; IV Status: Completed infusion; IV Intake: bb 1000ml 02:17 Drug: Ketorolac 30 mg Route: IVP; Site: right antecubital; mk 03:45 Follow up: Response: Pain is decreased mk 04:48 Follow up: Response: Pain is decreased bb 02:18 Drug: Phenergan (promethazine) 12.5 mg Route: IVP; Site: right antecubital; mk 04:48 Follow up: Response: Nausea is decreased bb 03:45 Drug: LevaQUIN (levofloxacin) 500 mg Route: PO; mk 04:48 Follow up: Response: Vomiting increased bb 04:31 Drug: Rocephin (cefTRIAXone) 1 grams Route: IV; Rate: bolus; Site: right antecubital; bb 04:47 Follow up: Response: No adverse reaction; IV Status: Completed infusion; IV Intake: 10mlbb Intake: 02:18 IV: 1000ml; Total: 1000ml. mk 04:47 IV: 10ml; Total: 1010ml. bb 04:48 IV: 1000ml; Total: 2010ml. bb Outcome: 03:12 Discharge ordered by . 7 04:45 Discharged to home bb 04:45 Discharged to home with family. 04:45 Condition: improved 04:45 Discharge instructions given to patient, family. 04:49 Patient left the ED. jesse Signatures: Dispatcher [employer] Marcy Fortnue, RN RN Gallito Ahmadi MD MD 7 Jewels Rosas Christine Clyde Junior RN RN as6 Rowena Medina RN REY mk
[2021-06-22] MEDS ORDERED: levoFLOXacin 500 MG TAB ONE (03:38)
[2021-06-22] MEDS ORDERED: WATER FOR INJ,STERILE 10 ML ONE (04:28)
[2021-06-22] MEDS ORDERED: CEFTRIAXONE 1000 MG/VIAL ONE (04:28)
[2021-06-22 05:10] VITALS: TEMP 97.5
[2021-06-22 05:16] VITALS: BP 137/74; O2SAT 97
--- NOTE | 2021-06-22 16:03 | RAD REPORT ---
EXAM DESCRIPTION: CT - Stone Protocol - 06/22/2021 5:59 am COMPARISON: None CLINICAL HISTORY: Flank pain, vomiting TECHNIQUE: Multiple helical axial images were obtained through the abdomen and pelvis without intrav enous contrast. Sagittal and coronal reformatted images are reviewed as well. All CT scans at this facility use dose modulation, iterative reconstruction, and/or weight-based dosi ng when appropriate to reduce radiation dose to as low as reasonably achievable. FINDINGS: Lung bases: There is a small hiatal hernia. Liver: Homogenous attenuation is demonstrated. Gallbladder/biliary: Gallbladder appears unremarkable. No calcified gallstones. No evidence of biliar y ductal dilatation. Pancreas: Unremarkable. Spleen: Unremarkable. Adrenals: Unremarkable. Kidneys and ureters: There is a 3 mm stone in the proximal right ureter with mild right hydronephrosi s. There are a few small left renal peripelvic cysts. Bladder: Unremarkable. Pelvic organs: Unremarkable. Bowel: No evidence of bowel obstruction. No bowel wall thickening. Appendix appears unremarkable. Peritoneum: No free air. No significant free fluid. Lymph nodes: Unremarkable. Vasculature: Unremarkable. Soft tissues: Unremarkable. Bones: Mild levocurvature of the lumbar spine noted. IMPRESSION: Right proximal ureteral 3 mm stone with mild right hydronephrosis. Electronically signed by: Juan Chacon MD 06/22/2021 12:52 AM [facility] Due to temporary technical issues with the PACS/Fluency reporting system, reports are being signed by the in house radiologists without review as a courtesy to insure prompt reporting. The interpreting radiologist is fully responsible for the content of the report.
== END 2021-06-22 04:49 | disposition home or self-care (01) ==
LOC: ER 22:57
DX: N20.1 Calculus of ureter (principal); Z91.038 Other insect allergy status
CPT/HCPCS: 96365; 96361; 85025; 80048; 36415; 80076; 81003; 83690; 76377; 74176; 96375; 99284; J2550; J7030 ×2; J2405